=== PATIENT | male | born 1945 | race Caucasian/White ===

== ENCOUNTER 2023-04-09 15:01 | Outpatient (REF) | payer MEDICARE, BC, SELFPAY ==
[2023-04-09 16:12] LABS: Abs Immature Grans 0.06 10^3/uL (0.0-0.06); Absolute Basophil Count 0.07 10^3/uL (0.0-0.2); Absolute Eosinophil Count 0.33 10^3/uL (0.0-0.7); Absolute Lymphocyte Count 1.71 10^3/uL (1.2-3.4); Absolute Monocyte Count 1.04 10^3/uL (0.1-0.8); Absolute Neutrophil Count 4.64 10^3/uL (1.2-6.7); Basophils % 0.9; Eosinophils % 4.2; HCT 38.2 % (40.0-50.0); HGB 13.3 g/dL (13.5-17.5); Immature Grans % 0.8; Lymphocytes % 21.8; MCH 31.2 pg (27.0-33.0); MCHC 34.8 % (32.0-36.0); MCV 90 fL (80-95); MPV 9.6 fL (8.0-11.0); Monocytes % 13.2; Neutrophils % 59.1; Platelet Count 242 10^3/uL (130-400); RBC 4.26 10^6/uL (4.36-5.78); RDW 12.8 % (11.8-14.1); RDW-SD 42.2 fL; WBC 7.85 10^3/uL (4.4-10.8)
[2023-04-09 17:30] LABS: ALT 12 U/L (16-63); AST 19 U/L (15-37); Albumin 3.4 g/dL (3.4-5.0); Alkaline Phosphatase 65 U/L (46-116); Anion Gap 9.8 mmol/L (3-11); BUN 13 mg/dL (7-18); CO2 26.2 mmol/L (21.0-32.0); CREATININE 0.9 mg/dL (0.70-1.30); Chloride 97 mmol/L (98-107); Estimated GFR 87.96 (mL/min/1.73m2); Glucose 86 mg/dL (74-106); Potassium 4.6 mmol/L (3.5-5.1); Sodium 133 mmol/L (136-145); Total Protein 6.8 g/dL (6.4-8.2)
[2023-04-09 17:54] LABS: Bilirubin, Total 0.5 mg/dL (0.2-1.0)
== END 2023-04-09 15:02 | disposition home or self-care (01) ==
LOC: LBN 15:01
PROVIDERS: PCP Family Medicine; Visit Provider Family Medicine
DX: N39.0 Urinary tract infection, site not specified (principal); E87.1 Hypo-osmolality and hyponatremia
CPT/HCPCS: 80053; 85025

== ENCOUNTER 2023-04-17 22:20 | Outpatient (REF) | payer MEDICARE, BC, SELFPAY ==
[2023-04-18 18:29] LABS: PSA, Screening 0.2 ng/mL (<=6.5)
== END 2023-04-17 22:21 | disposition home or self-care (01) ==
LOC: LBN 22:20
PROVIDERS: PCP Family Medicine; Visit Provider Urology
DX: N40.1 Benign prostatic hyperplasia with lower urinary tract symptoms (principal); Z12.5 Encounter for screening for malignant neoplasm of prostate
CPT/HCPCS: 84153

== ENCOUNTER 2023-05-18 14:13 | Outpatient (REF) | payer MEDICARE, BC, SELFPAY ==
[2023-05-18 15:39] LABS: Bilirubin Small (Negative); Blood Negative (Negative); Clarity Sl Cloudy (Clear); Glucose Negative (Negative); Ketones 15 mg/dL (Negative); Leukocyte Esterase Negative (Negative); Nitrite Negative (Negative); pH 6.5 (5-8)
== END 2023-05-18 14:14 | disposition home or self-care (01) ==
LOC: LBN 14:13
PROVIDERS: PCP Family Medicine; Visit Provider Family Medicine
DX: N40.1 Benign prostatic hyperplasia with lower urinary tract symptoms (principal)
CPT/HCPCS: 81003